=== PATIENT | female | born 1950 | race Asian ===

== ENCOUNTER 2018-06-14 08:08 | Day surgery (SDC) | payer OTHER ==
[2018-06-14] MEDS ORDERED: PROPOFOL 40 ML (09:51)
== END 2018-06-14 11:35 | disposition home or self-care (01) ==
LOC: GIL 08:08
DX: Z12.11 Encounter for screening for malignant neoplasm of colon (principal); K29.50 Unspecified chronic gastritis without bleeding; I10 Essential (primary) hypertension; R10.13 Epigastric pain
CPT/HCPCS: 43239; 88305; 88312